=== PATIENT | female | born 1945 | race Caucasian/White ===

== ENCOUNTER 2019-04-27 09:00 | Inpatient (IN) | payer OTHER ==
[~2019-04-27] VITALS: Ht 152.4 cm; Wt 59.0 kg
[2019-04-27] MEDS ORDERED: COZAAR100 MG PO (10:15)
[2019-04-27] MEDS ORDERED: CLONAZEPAM2 MG PO (10:16)
[2019-04-27] MEDS ORDERED: PAXIL20 MG PO (10:16)
[2019-04-27] MEDS ORDERED: XALATAN (10:16)
[2019-04-27] MEDS ORDERED: LEVSIN/SL0.125 MG SL (10:17)
[2019-04-27] MEDS ORDERED: PROTONIX40 MG PO (10:17)
[2019-04-27] MEDS ORDERED: SIMVASTATIN20 MG PO (10:18)
[2019-04-29] MEDS ORDERED: LATANOPROST2.5 ML OP (08:32)
[2019-05-02] MEDS ORDERED: HYOSCYAMINE0.125 M1 SL (16:45)
[2019-05-02] MEDS ORDERED: OXYC1TAB9 PO (16:46)
== END 2019-05-02 17:11 | disposition home or self-care (01) | DRG 331 ==
LOC: EDSTATUS 09:00 → ADM 09:00 → O/R 04-29 05:35 → SURH 04-29 05:35
PROVIDERS: ADMIT Surgery
PROC: 0DJD8ZZ Inspection of Lower Intestinal Tract, Via Natural or Artificial Opening Endoscopic (ICD-10-PCS; 2019-04-29)
PROC: 0DTN4ZZ Resection of Sigmoid Colon, Percutaneous Endoscopic Approach (ICD-10-PCS; principal; 2019-04-29 07:00)
DX: K57.30 Diverticulosis of large intestine without perforation or abscess without bleeding (principal); R15.2 Fecal urgency; K29.00 Acute gastritis without bleeding; N73.6 Female pelvic peritoneal adhesions (postinfective); K63.89 Other specified diseases of intestine; I10 Essential (primary) hypertension; N81.6 Rectocele; R53.1 Weakness

== ENCOUNTER 2020-02-11 07:05 | Day surgery (SDC) | payer OTHER ==
[~2020-02-11 07:05] MED LIST: CLONAZEPAM2 MG PO; COZAAR100 MG PO; HYOSCYAMINE0.125 M1 SL; LATANOPROST2.5 ML OP; LEVSIN/SL0.125 MG SL; OXYC1TAB9 PO; PAXIL20 MG PO; PROTONIX40 MG PO; SIMVASTATIN20 MG PO; XALATAN
== END 2020-02-11 10:40 | disposition home or self-care (01) ==
LOC: AMB-ENDOS 07:05
DX: K62.89 Other specified diseases of anus and rectum (principal)

== ENCOUNTER 2020-03-21 05:48 | Day surgery (SDC) | payer OTHER ==
[~2020-03-21 05:48] MED LIST changes: +[UNRECOGNIZED DRUG - OTHER] PO
[2020-03-21] MEDS ORDERED: KEFLEX500 MG PO (10:05)
[2020-03-21] MEDS ORDERED: ULTRACET PO (10:06)
[2020-03-31] MEDS ORDERED: CARAFATE PO (10:23)
== END 2020-03-21 12:20 | disposition home or self-care (01) ==
LOC: CIR.AMB 05:48
PROVIDERS: ATTEND Surgery
DX: R15.9 Full incontinence of feces (principal)
CPT/HCPCS: 64581; C1778

== ENCOUNTER 2020-04-03 07:00 | Day surgery (SDC) | payer OTHER ==
[~2020-04-03 07:00] MED LIST changes: +CARAFATE PO; +KEFLEX500 MG PO; +ULTRACET PO
== END 2020-04-03 13:00 | disposition home or self-care (01) ==
LOC: CIR.AMB 07:00
PROVIDERS: ATTEND Surgery
DX: R15.2 Fecal urgency (principal); R15.9 Full incontinence of feces
CPT/HCPCS: 64590; 95971; L8679